=== PATIENT | male | born 1980 | race Two or more races ===

== ENCOUNTER 2017-07-09 09:41 | Inpatient (IN) | payer OTHER ==
[~2017-07-09] VITALS: Ht 182.9 cm; Wt 126.9 kg
[2017-07-09] MEDS ORDERED: SODIUM CHLORIDE 0.9% 1,000 ML IV ONE (09:51)
[2017-07-09] MEDS ORDERED: InsuLIN REG 1unit/0.01ml Soln (100units/ml) IV ONE (10:00)
[2017-07-09 10:15] LABS: Basophils # (auto) 0 uL; Basophils % (auto) 0.3 % (0.0-2.0); CONDITION Y; Eosinophils # (auto) 0.1 uL; Eosinophils % (auto) 1.3 % (0.0-7.0); Hematocrit 44.6 % (41.0-53.0); Hemoglobin 15.1 g/dL (13.5-17.5); Lymphocytes % (auto) 21.5 % (10.0-50.0); Mean Corpuscular Hemoglobin 30.6 pg (28.0-32.0); Mean Corpuscular Hgb Conc. 33.9 g/dL (32.0-36.0); Mean Corpuscular Volume 90.3 fL (80.0-100.0); Mean Platelet Volume 11.8 fL (7.4-10.4); Monocytes # (auto) 0.7 uL; Monocytes % (auto) 7.4 % (0.0-12.0); Neutrophils # (auto) 6.4 uL; Neutrophils % (auto) 69.5 % (37.0-80.0); Platelet Count (auto) 217 10^3/uL (140-450); Red Cell Distribution Width 12.6 % (11.6-16.0); SUSPECT SEE PRINTOUT; White Blood Cell 9.2 10^3/uL (4.4-10.8)
[2017-07-09 10:33] LABS: Albumin 3.9 g/dL (3.4-5.0); BUN/Creatinine Ratio 12.1; Calcium 8.7 mg/dL (8.5-10.1); Potassium 4.3 mmol/L (3.5-5.1)
[2017-07-09 10:41] LABS: Bilirubin, Total 0.9 mg/dL (0.2-1.0); Total Protein 6.9 g/dL (6.4-8.2)
[2017-07-09] MEDS ORDERED: HYDROcodone-ACET 5/325MG TAB PO PRN (11:00)
[2017-07-09] MEDS ORDERED: LACTULOSE 20Gm/30ML SOLN PO PRN (11:00)
[2017-07-09] MEDS ORDERED: TEMAZEPAM 15 MG CAP PO PRN (11:00)
[2017-07-09] MEDS ORDERED: ACETAMINOPHEN 500 MG TAB PO PRN (11:00)
[2017-07-09] MEDS ORDERED: PROMETHAZINE HCL 25 MG/ML 1ML IV PRN (11:00)
[2017-07-09] MEDS ORDERED: MORPHINE SULF INJ 2 MG/ML SYRINGE 1ML IV PRN (11:00)
[2017-07-09] MEDS ORDERED: NITROGLYCERIN 0.4 MG SL TAB SL PRN (11:00)
[2017-07-09] MEDS ORDERED: DEXTROSE (50%) 50ML SYRG IV PRN (11:00)
[2017-07-09] MEDS ORDERED: MORPHINE SULFATE 4 MG/ML SYRG IV PRN (11:00)
[2017-07-09] MEDS ORDERED: LORazepam 0.5 MG TAB PO PRN (11:00)
[2017-07-09] MEDS: SODIUM CHLORIDE 0.9% 1,000 ML IV SCH ×3 (11:10→20:19)
[2017-07-09 11:12] LABS: Amylase 36 U/L (25-115)
[2017-07-09] MEDS: ACCU-CHEK COMFORT CURVE STRIP VI SCH ×4 (11:46→23:59)
[2017-07-09] MEDS: InsuLIN REG 1unit/0.01ml Soln (100units/ml) SC SCH ×4 (11:49→23:59)
[2017-07-09 13:00] VITALS: BP 120/55
[2017-07-09] MEDS ORDERED: glyBURIDE 5 MG TAB PO ONE (15:30)
[2017-07-09 16:56] VITALS: BP 133/68
[2017-07-09 22:00] VITALS: BP 115/42
[2017-07-10] MEDS: SODIUM CHLORIDE 0.9% 1,000 ML IV SCH (03:35)
[2017-07-10] MEDS: ACCU-CHEK COMFORT CURVE STRIP VI SCH ×3 (03:57→12:00)
[2017-07-10] MEDS: InsuLIN REG 1unit/0.01ml Soln (100units/ml) SC SCH ×3 (03:57→12:00)
[2017-07-10 06:16] VITALS: BP 124/70
[2017-07-10] MEDS ORDERED: glyBURIDE 5 MG TAB PO SCH (07:00)
[2017-07-10 08:00] VITALS: BP 119/60
[2017-07-10 09:00] VITALS: BP 119/60
[2017-07-10 10:54] LABS: Basophils # (auto) 0 uL; Basophils % (auto) 0.4 % (0.0-2.0); CONDITION Y; Eosinophils # (auto) 0.2 uL; Hematocrit 42.8 % (41.0-53.0); Hemoglobin 14.5 g/dL (13.5-17.5); Lymphocytes # (auto) 3.2 uL; Lymphocytes % (auto) 29.8 % (10.0-50.0); Mean Corpuscular Hemoglobin 30.8 pg (28.0-32.0); Mean Corpuscular Hgb Conc. 33.8 g/dL (32.0-36.0); Mean Corpuscular Volume 91.4 fL (80.0-100.0); Mean Platelet Volume 12.2 fL (7.4-10.4); Monocytes # (auto) 0.7 uL; Monocytes % (auto) 6.7 % (0.0-12.0); Neutrophils # (auto) 6.6 uL; Neutrophils % (auto) 61.1 % (37.0-80.0); Platelet Count (auto) 189 10^3/uL (140-450); Red Cell Distribution Width 13.1 % (11.6-16.0); White Blood Cell 10.8 10^3/uL (4.4-10.8)
[2017-07-10 11:01] LABS: Albumin 3.3 g/dL (3.4-5.0); BUN/Creatinine Ratio 17.6; Bilirubin, Direct 0.2 mg/dL (0-0.2); Calcium 8.2 mg/dL (8.5-10.1)
[2017-07-10 11:04] LABS: Bilirubin, Total 0.5 mg/dL (0.2-1.0)
[2017-07-10 13:00] VITALS: BP 125/66
[2017-07-10] MEDS ORDERED: GLY5T PO (13:38)
[2017-07-10] MEDS ORDERED: METF-370 PO (13:38)
[2017-07-10] MEDS ORDERED: BLOOKIT79 XX (13:44)
[2017-07-10 15:51] VITALS: BP 119/60
[2017-07-10 17:01] VITALS: BP 123/55
[2017-07-11 10:44] LABS: Hepatitis B Surface Antibody Positive
[2017-07-12 15:33] LABS: Cholesterol 152 mg/dL (< 200)
[2017-07-12 17:52] LABS: HDL Cholesterol 33 mg/dL (40-59); LDL Cholesterol 108 mg/dL (< 100); Triglycerides 133 mg/dL (< 150)
== END 2017-07-10 17:10 | disposition home health service (06) | DRG 639 ==
LOC: ER 09:44 → TELE 09:45 → TELE-E-ADS 12:50 → TELE-CENTR 14:22
PROVIDERS: ADMIT Internal Medicine; ATTEND Internal Medicine
DX: E11.65 Type 2 diabetes mellitus with hyperglycemia (principal); E86.0 Dehydration; F17.210 Nicotine dependence, cigarettes, uncomplicated; E66.9 Obesity, unspecified; H53.8 Other visual disturbances; K59.00 Constipation, unspecified; F41.9 Anxiety disorder, unspecified; G47.00 Insomnia, unspecified; R79.89 Other specified abnormal findings of blood chemistry; Z80.3 Family history of malignant neoplasm of breast; Z83.3 Family history of diabetes mellitus; Z68.39 Body mass index [BMI] 39.0-39.9, adult; Z89.022 Acquired absence of left finger(s); Z71.89 Other specified counseling
CPT/HCPCS: 36415; 76705; 80048; 80053; 80061; 80076; 82150; 82962; 83036; 83690; 85025; 85652; 86704; 86706; 86708; 86803; 87340; 93005; 94761; 96361; 96374; J1815